=== PATIENT | male | born 1995 | race Caucasian/White ===

== ENCOUNTER 2021-04-02 21:43 | Emergency (ER) | payer BC, SELFPAY ==
[2021-04-02 21:44] VITALS: BP 129/79; PULSE 94; RESP 18; TEMP 37.2; O2SAT 97; BMI 25.6
[2021-04-02 21:47] VITALS: BP 129/79; PULSE 94; RESP 18; TEMP 37.2; O2SAT 97
--- NOTE | 2021-04-02 22:35 | RAD_ITS ---
STUDY: X-RAY CHEST REASON FOR EXAM: Male, 25 years old. fever TECHNIQUE: Single AP portable view of the chest. COMPARISON: None. FINDINGS: The lungs are clear and expanded. There is no demonstrated pleural abnormality. Normal size heart. Normal mediastinum and nae. Normal visualized pulmonary arteries. Normal visualized aortic arch and descending thoracic aorta. Normal visualized thoracic spine. Normal visualized ribs, clavicles, and shoulders. There is no demonstrated abnormality of the visualized soft tissue structures of the upper abdomen. RAD/Chest 1 View (Portable) IMPRESSION: Normal x-ray examination of the chest. Electronically Signed: Richi Conroy DO at 23:16 EDT Tel , Service support ,
[2021-04-02 22:47] VITALS: BP 127/76; PULSE 87; RESP 18; O2SAT 99
[2021-04-02 22:51] VITALS: O2SAT 98
--- NOTE | 2021-04-02 22:52 | CT_ITS ---
STUDY: CT ABDOMEN AND PELVIS WITH CONTRAST REASON FOR EXAM: Male, 25 years old. LLQ Abdominal Pain RADIATION DOSAGE (If Supplied By Facility): CTDIvol = ( 11.59 ) mGy, DLP = ( 735.39 ) mGycm TECHNIQUE: Transaxial images were obtained from the dome of the diaphragm to the symphysis pubis without oral contrast. IV 100mL Isovue-300 was administered. Sagittal and coronal images were reconstructed. Individualized dose optimization techniques were used for this CT. COMPARISON: None. FINDINGS: The visualized lung bases are unremarkable. The visualized portions of the heart are within normal limits. Normal liver. Normal gallbladder and extrahepatic biliary system. Normal spleen. Normal pancreas. Normal bilateral adrenal glands. Normal right kidney. Normal left kidney. Normal visualized stomach. Normal small intestine. Normal colon. The appendix is visualized and appears normal. Normal abdominal aorta. Normal inferior vena cava. There are multiple small retroperitoneal and periaortic lymph nodes without bulky appearance. There is very subtle inflammation and edema around the aorta and these lymph nodes. Normal urinary bladder. Normal visualized prostate gland. Normal abdominal wall. Normal osseous structures. CT/Abdomen/Pelvis W IV Cont ONLY IMPRESSION: 1. Multiple small retroperitoneal and para-aortic lymph nodes with subtle inflammation and edema of the mesentery. Unlikely to represent aortitis itself. Nonspecific finding. 2. Remainder is within normal limits. Unremarkable appendix. Electronically Signed: Richi Conroy DO at 0:34 EDT Tel , Service support ,
--- NOTE | 2021-04-02 22:52 | EX.ED.DYSGE1 ---
HPI History of Present Illness Chief Complaint: Fever Informant: patient and spouse/S.O. Narrative Narrative: 25-year-old male presents the emergency department for fever. Patient states that he came home on Tuesday with a fever around 102. He notes some headache chronic nasal congestion has developed left lower abdominal pain. He denies any dysuria. He states he did have some constipation which is odd for him. He denies any significant cough or shortness of breath. He states that he went to an urgent care today because he was concerned he had hernia but they felt that it was more swollen lymph nodes. Tonight his temperature went to 104 and he came to the hospital. He notes at urgent care they amberly blood and checked his urine and stated that he had high amounts of protein and bilirubin in the urine patient denies any penile sores in the past several months. He denies any penile drainage. PFSH PFSH no medical history Home Medications NK 04/02/21 [History Last Taken Unknown] amoxicillin-pot clavulanate 875 mg PO Q12H #19 tablet 04/03/21 [Rx Last Taken Unknown] Allergy/AdvReac Type Severity Reaction Status Date / Time No Known Allergies Allergy Verified 04/02/21 21:47 Social History (Updated 04/02/21 @ 22:[address] Cyrus Carey, DO) Smoking Status: Former smoker substance use type: does not use ROS ROS ED Constitutional Constitutional ED: Reports chills and fever(s); Denies weight loss Eyes Eyes: Denies change in vision or diplopia ENT ENT ED: Denies ear pain, rhinorrhea or sore throat Cardiovascular Cardiovascular: Denies chest pain, orthopnea, palpitations or racing heartbeat Respiratory/Chest Respiratory/Chest: Denies cough, dyspnea or orthopnea Gastrointestinal Gastrointestinal: Reports abdominal pain and constipation; Denies diarrhea, nausea or vomiting Genitourinary Genitourinary ED: Denies dysuria, hematuria or urinary frequency Musculoskeletal Musculoskeletal: Denies arthralgias or myalgias Integumentary Denies abscess or rash Neurologic Neurologic: Reports headache(s); Denies weakness Psychiatric Psychiatric: Denies anxiety, depression, suicidal ideation or suicidal thoughts Endocrine Endocrinology: Denies polydipsia, polyphagia or polyuria Allergic/Immunologic Allergic/Immunologic ED: Denies mouth swelling, tongue swelling or urticaria EXAM Physical Exam Const Vital Signs: 04/02/21 21:44 04/02/21 21:47 04/02/21 21:48 Temperature 99 F 99 F Temperature Source Temporal Temporal Pulse Rate 94 94 Respiratory Rate 18 18 Respiratory Effort Normal Respiratory Pattern Normal Blood Pressure 129/79 H 129/79 H Blood Pressure Mean 95 95 Pulse Ox 97 97 Oxygen Delivery Method 04/02/21 22:51 04/02/21 23:33 Temperature Temperature Source Pulse Rate 89 Respiratory Rate 18 Respiratory Effort Respiratory Pattern Blood Pressure 127/72 H Blood Pressure Mean 90 Pulse Ox 98 97 Oxygen Delivery Method Room Air Room Air Positive well nourished and well developed General Appearance ED: well developed HEENT Reports normocephalic, head/scalp atraumatic and moist mucous membranes HEENT Narrative: Turbinate edema Eyes PERRL and EOMs intact bilaterally Neck no lymphadenopathy, supple and no JVD Resp normal respiratory effort and clear to auscultation bilaterally Cardio regular rate, regular rhythm and no murmurs GI GI Narrative: There are some tender enlarged lymph nodes in the left lower quadrant Palpation: soft and tender LLQ Back/Spine no CVA tenderness and normal ROM Extremity normal to inspection General Extremety ED: Negative for edema General Extremity: Negative for edema Neuro oriented x3 and CN's II-XII intact bilaterally Sensorium / Orientation: alert Motor Exam: strength 5/5 throughout Psych mental status grossly normal Mood & Affect: Negative for depressed or tearful Skin no rashes or lesions noted and no wounds MDM MDM MDM Narrative Medical decision making narrative: My interpretation of the chest x-ray is no acute process. CT the abdomen pelvis demonstrates some enlarged lymph nodes and also enlarged lymph nodes in the left inguinal region. Urinalysis is normal. White count 8.273 neutrophils 13 lymphs and 12 monocytes. Covid test was negative. At this point patient appears to probably have a viral illness. I do not think that is a false positive Covid as he does not have really any other symptoms other than fever. No place him on Augmentin. Would recommend early follow-up if not improving or return here if new symptoms. Lab Data Attestation: I reviewed the patient's lab results. Labs: Laboratory Results - last 24 hr 04/02/21 04/02/21 04/02/21 23:00 23:00 23:00 WBC 8.2 RBC 4.89 Hgb 13.8 Hct 40.0 MCV 81.8 MCH 28.2 MCHC 34.5 RDW Std Deviation 37.7 RDW Coeff of Carmen 12.5 Plt Count 174 MPV 10.3 Immature Gran % (Auto) 0.100 Neut % (Auto) 73.8 H Lymph % (Auto) 13.4 L Mcdonough % (Auto) 12.1 H Eos % (Auto) 0.2 Baso % (Auto) 0.4 Absolute Neuts (auto) 6.0 Absolute Lymphs (auto) 1.10 Nucleated RBC % 0 Sodium 135 L Potassium 3.4 L Chloride 101 Carbon Dioxide 26.0 Anion Gap 8 BUN 11 Creatinine 1.03 Estim Creat Clear Calc 121.75 Est GFR (MDRD) Af Amer 111 Est GFR (MDRD) Non-Af 92 BUN/Creatinine Ratio 10.7 Glucose 120 H Calcium 8.6 Total Bilirubin 0.50 AST 17 ALT 22 Alkaline Phosphatase 60 Total Protein 8.2 Albumin 3.5 Globulin 4.7 H Albumin/Globulin Ratio 0.7 L Urine Color Yellow Urine Clarity Clear Urine pH 7.0 Ur Specific Carroll 1.005 Urine Protein 15 H Urine Glucose (UA) Normal Urine Ketones Negative Urine Occult Blood Negative Urine Nitrite Negative Urine Bilirubin Negative Urine Urobilinogen 1 H Ur Leukocyte Esterase Negative Urine RBC 0 SEEN Urine WBC 0 SEEN Ur Squamous Epith Cells 0 SEEN Urine Bacteria RARE Urine Mucus 0 SEEN Radiography Diagnostic Testing: Radiology Impression Chest X-Ray 04/02/21 22:35 IMPRESSION: Normal x-ray examination of the chest. Electronically Signed: Richi Conroy DO at 23:16 EDT Tel , Service support , Abdomen/Pelvis CT 04/02/21 22:52 IMPRESSION: 1. Multiple small retroperitoneal and para-aortic lymph nodes with subtle inflammation and edema of the mesentery. Unlikely to represent aortitis itself. Nonspecific finding. 2. Remainder is within normal limits. Unremarkable appendix. Electronically Signed: Richi Conroy DO at 0:34 EDT Tel , Service support , Discharge Plan Triage Chief Complaint: Fever ED Provider: Cyrus Carey Dx/Rx/DC Orders Clinical Impression: Acute febrile illness, Inguinal adenopathy Prescriptions: New amoxicillin-pot clavulanate [amoxicillin-pot clavulanate] 875 MG tablet 875 mg PO Q12H Qty: 19 RF: 0 No Action NK RF: 0 Primary Care Provider: Care Physician,No Primary Referrals: Dylon Murdock MD [STAFF PHYSICIAN] - 3-5 Days if not improving Care Physician,No Primary [Primary Care Provider] - Disposition Disposition: Home, Self Care
[2021-04-02 23:19] LABS: Basophil# 0.03 X10^3/uL; Basophil% 0.4 % (0-1); Eosinophil# 0.02 X10^3/uL; Eosinophils% 0.2 % (0-5); Hemoglobin 13.8 g/dL (13.0-16.5); Lymphocyte % 13.4 % (19-41); Mean Corp Hgb Conc 34.5 g/dL (32-36); Mean Corpuscular Hgb 28.2 pg (27.0-32.0); Mean Corpuscular Volume 81.8 fL (80-94); Mean Platelet Vol. 10.3 fl (6.2-12.0); Monocyte# 0.99 X10^3/uL; Monocyte% 12.1 % (0-10); NRBC Flagged by Analyzer 0 % (0-5); Neutrophil # 6.03 X10^3/uL (2.7-7.7); Neutrophil % 73.8 % (47-70); Platelet Count 174 K/mm3 (150-450); RBC Distribution Width CV 12.5 % (11.6-14.6); RBC Distribution Width SD 37.7 fl (35.1-43.9); Red Blood Count 4.89 M/mm3 (4.6-6.2); White Blood Count 8.2 K/mm3 (4.4-11.0)
[2021-04-02 23:20] LABS: Mucous, Urine 0 SEEN /hpf (<or=2+); Red Blood Cells-Urine 0 SEEN /hpf (0-5); Squamous Epithelial Cells - UA 0 SEEN /hpf (0-5); White Blood Cells 0 SEEN /hpf (0-5)
[2021-04-02 23:23] LABS: Color, Urine Yellow (Yellow); Glucose, Dipstick Normal (Normal); Ketone-Dipstick Negative (Negative); Leukocyte Esterase-Dipstick Negative /ul (Negative); Nitrite-Dipstick Negative (Negative); Occult Blood-Urine Negative /ul (Negative); Protein-Dipstick 15 mg/dl (Negative); Specific Gravity, Urine 1.005 (1.002-1.030); Urine Bilirubin Dipstick Negative (Negative); Urine Clarity Clear (Clear); Urine Urobilinogen 1 mg/dl (Normal)
[2021-04-02 23:29] LABS: Bacteria RARE /hpf (None Seen)
[2021-04-02 23:33] VITALS: BP 127/72; PULSE 89; RESP 18; O2SAT 97
[2021-04-02 23:40] LABS: ALB/GLOB Ratio 0.7 RATIO (0.9-2.4); AST(SGOT) 17 U/L (15-37); Alanine Aminotransfer ALT/SGPT 22 U/L (16-61); Albumin, Serum 3.5 g/dL (3.2-5.0); Alkaline Phosphatase 60 U/L (45-117); Anion Gap 8 (5-15); BUN 11 mg/dL (7-18); BUN/Creat Ratio 10.7 RATIO (10-20); Calcium,Total 8.6 mg/dL (8.5-10.1); Chloride 101 mmol/L (98-107); Creatinine, Serum 1.03 mg/dL (0.70-1.30); EST Glomerular Filtration Rate 92 mL/min (>60); Est Glom Filt Rate - Afr Amer 111 mL/min (>60); Estimated Creatinine Clearance 121.75 ml/min; Globulin 4.7 g/dL (2.2-4.2); Glucose 120 mg/dL (74-106); Potassium 3.4 mmol/L (3.5-5.1); Protein, Total 8.2 g/dL (6.4-8.2); Sodium Level 135 mmol/L (136-145)
[2021-04-03] MEDS: Amox/Clavulanate 875 MG Tablet PO (01:06)
== END 2021-04-03 01:09 | disposition home or self-care (01) ==
PROVIDERS: Emergency Provider Emergency Medicine
DX: R50.9 Fever, unspecified (principal); R59.0 Localized enlarged lymph nodes; Z20.822 Contact with and (suspected) exposure to COVID-19; R51.9 Headache, unspecified; R09.81 Nasal congestion; R10.32 Left lower quadrant pain; K59.00 Constipation, unspecified; Z87.891 Personal history of nicotine dependence
CPT/HCPCS: 71045; 74177; 80053; 81001; 85025; 87426; 99283; Q9967; A4216

== ENCOUNTER → 2023-08-26 | Outpatient (CLI) | payer BC, SELFPAY ==
--- NOTE | 2023-08-26 13:41 | VAS_PTH ---
PATHOLOGY RESULTS PATIENT: JOSH MANLEY LOC: [facility]#:[id number] AGE/SX: 28/M ROOM: RE08/26/[address]: Dr. Darnell Francis MD : 1995 BED: DIS: 08/26/2023 SPEC #: [id number] RECD: 08/30/23 07:45 STATUS: SANTOS JUSTYNA #: [id number] BRIANA: 08/26/23 13:[address]: Darnell Francis DEPT: SURGICAL PATHOLOGY RECD BY: Kandy Jain ENTERED: 08/30/23 07:46 SP TYPE: VAS OTHR DR: Divina Primary Care Phys Tissues: Vas deferens, NOS Vas deferens, NOS Procedures: Surgery Specimen Level II HEADER OPERATION: Bilateral partial vasectomy PRE-OP DIAGNOSIS: Sterilization TISSUE SUBMITTED: A - Left vas deferens, B - Right vas deferens MICROSCOPIC DIAGNOSIS A. Left vas deferens, segmental vasectomy: Complete cross-section of vas deferens with no pathologic change. B. Right vas deferens, segmental vasectomy: Complete cross-section of vas deferens with no pathologic change. AM:ivone 08/31/2023 MICROSCOPIC DESCRIPTION Slides are reviewed. GROSS DESCRIPTION A - Received is one container designated left vas deferens. The specimen consists of a tubular segment of garcia soft tissue measuring 0.9 cm in length and 0.2 cm in diameter. The specimen is sectioned and submitted entirely in one cassette. B - Received is one container designated right vas deferens. The specimen consists of a tubular segment of garcia soft tissue measuring 1.0 cm in length and 0.2 cm in diameter. The specimen is sectioned and submitted entirely in one cassette. / SJ:ivone 08/30/2023 TC:4 CPT: 10367 x2
--- OUTSIDE RECORDS SUMMARY | 2023-08-26 20:36 | XMS RPT_ITS | CCD ---
Author Name Unknown Address [address] [place] [address] Organization [facility] Care Team Providers Care Data Systems Analyst Name Role Phone SUZAN BENNETT Admitting Unavailable SUZAN BENNETT Attending Unavailable SUZAN BENNETT Primary Care Unavailable MAC LAMBERT MD Consulting Unavailable PROVIDER, UNKNOWN Consulting Unavailable PROVIDER, UNKNOWN Consulting Unavailable PROVIDER, UNKNOWN Consulting Unavailable Felecia Dyer PA-C Primary Care Provider [phone] Felecia Dyer PA-C Primary Care Provider [phone] Felecia DYER Referring Unavailable Felecia DYER Primary Care Unavailable Felecia DYER Attending Unavailable Felecia DYER Primary Care Unavailable SUZAN PARR Attending Unavailable Felecia DYER Primary Care Unavailable Medications Completed/Discontinued Medications Medication Drug Class(es) Dates Sig (Normalized) Sig (Original) escitalopram 10 mg oral tablet (1 source) Serotonin Reuptake Inhibitor Start: 10-29-2022 End: 03-11-2023 take 1 tablet by mouth once daily escitalopram oxalate (LEXAPRO) 10 mg tablet Indications: ADHD (attention deficit hyperactivity disorder), combined type , Irritability Take 1 tablet by mouth once daily. 90 tablet 1 10/29/2022 03/11/2023 Discontinued (Course of therapy completed) Problems Problem Classification Problem Date Documented Date Episodic/Chronic Administrative/socia l admission (4 sources) Patient encounter status; Translations: [Encounter for examination for driving license] Onset: 03-11-2023 Episodic Disorders of teeth and jaw (1 source) Gingivitis; Translations: [Chronic gingivitis, plaque induced] 03-11-2023 Chronic Disorders of teeth and jaw (1 source) Periodontal disease; Translations: [Periodontal disease, unspecified] Episodic Esophageal disorders (11 sources) Gastroesophageal reflux disease without esophagitis; Translations: [Gastro-esophageal reflux disease without esophagitis] Onset: 05-08-2021 Chronic Fever of unknown origin (1 source) Fever, unspecified; Translations: [Fever, unspecified] Onset: 03-10-2020 Episodic Headache; including migraine (1 source) Headache; Translations: [Headache] Onset: 03-10-2020 Episodic Immunizations and screening for infectious disease (1 source) Vaccination needed; Translations: [Encounter for immunization] Episodic Lymphadenitis (1 source) Disorder of intra-abdominal lymph nodes; Translations: [Localized enlarged lymph nodes] Episodic Other hematologic conditions (1 source) ESR raised; Translations: [Elevated erythrocyte sedimentation rate] Episodic Other lower respiratory disease (3 sources) Shortness of breath; Translations: [Shortness of breath] Onset: 03-10-2020 Episodic Other nutritional; endocrine; and metabolic disorders (2 sources) Weight loss; Translations: [Abnormal weight loss] Episodic Thyroid disorders (18 sources) Graves' disease; Translations: [Thyrotoxicosis with diffuse goiter without thyrotoxic crisis or storm] Onset: 12-04-2021 Chronic Viral infection (11 sources) Elzbieta-Reddy virus disease; Translations: [Infectious mononucleosis, unspecified without complication] Onset: 12-04-2021 Episodic Results Test Name Value Interpretation Reference Range Facil ity Vital Signs Date Time Vital Sign Value Performing Clinician Galina boone 03-11-2023 11:06-0400 Body height 182 cm NA Dyer PA-C Work Phone: [facility] 03-11-2023 11:06-0400 Body weight 86.64 kg NA Dyer PA-C Work Phone: [facility] 03-11-2023 11:06-0400 Diastolic blood pressure 68 mm[Hg] NA Dyer PA-C Work Phone: [facility] 03-11-2023 11:06-0400 Heart rate 83 /min NA Dyer PA-C Work Phone: [facility] 03-11-2023 11:06-0400 Respiratory rate 18 /min NA Dyer PA-C Work Phone: [facility] 03-11-2023 11:06-0400 SaO2% (BldA) [Mass fraction] 97 % NA Dyer PA-C Work Phone: [facility] 03-11-2023 11:06-0400 Systolic blood pressure 112 mm[Hg] NA Dyer PA-C Work Phone: [facility] 01-26-2022 08:05-0400 Body height 182.9 cm Nichol Sewell MD Work Phone: [facility] 01-26-2022 08:05-0400 Body weight 86.18 kg Nichol Sewell MD Work Phone: [facility] 01-26-2022 08:05-0400 Diastolic blood pressure 82 mm[Hg] Nichol Sewell MD Work Phone: [facility] 01-26-2022 08:05-0400 Heart rate 74 /min Nichol Sewell MD Work Phone: [facility] 01-26-2022 08:05-0400 SaO2% (BldA) [Mass fraction] 100 % Nichol Sewell MD Work Phone: [facility] 01-26-2022 08:05-0400 Systolic blood pressure 132 mm[Hg] Nichol Sewell MD Work Phone: [facility] 12-31-2021 10:47-0400 Body height 182 cm NA Dyer PA-C Work Phone: [facility] 12-31-2021 10:47-0400 Body weight 87.09 kg NA Dyer PA-C Work Phone: [facility] 12-31-2021 10:47-0400 Diastolic blood pressure 68 mm[Hg] NA Dyer PA-C Work Phone: [facility] 12-31-2021 10:47-0400 Heart rate 74 /min NA Dyer PA-C Work Phone: [facility] 12-31-2021 10:47-0400 Respiratory rate 16 /min NA Dyer PA-C Work Phone: [facility] 12-31-2021 10:47-0400 SaO2% (BldA) [Mass fraction] 98 % NA Dyer PA-C Work Phone: [facility] 12-31-2021 10:47-0400 Systolic blood pressure 122 mm[Hg] NA Dyer PA-C Work Phone: [facility] 12-04-2021 08:31-0400 Body weight 89.36 kg NA Dyer PA-C Work Phone: [facility] 12-04-2021 08:31-0400 Diastolic blood pressure 82 mm[Hg] NA Dyer PA-C Work Phone: [facility] 12-04-2021 08:31-0400 Heart rate 76 /min NA Dyer PA-C Work Phone: [facility] 12-04-2021 08:31-0400 Respiratory rate 18 /min NA Dyer PA-C Work Phone: [facility] 12-04-2021 08:31-0400 SaO2% (BldA) [Mass fraction] 97 % NA Dyer PA-C Work Phone: [facility] 12-04-2021 08:31-0400 Systolic blood pressure 128 mm[Hg] NA Dyer PA-C Work Phone: [facility] Encounters Encounter Date Encounter Type Care Provider Facility Start: 03-11-2023 End: 03-12-2023 ambulatory Felecia DYER Facility:[facility] Start: 03-11-2023 End: 03-11-2023 ambulatory Felecia DYER Facility:[facility] Start: 03-11-2023 End: 03-11-2023 Patient encounter procedure Felecia Dyer PA-C Work Phone: [facility] Procedures Date Procedure Procedure Detail Performing Clinician Start: 03-11-2023 Urnls dip stick/tabl et rgnt auto w/o microscopy Felecia Dyer PA-C Work Phone: Start: 05-05-2022 Urnls dip stick/tabl et rgnt auto w/o microscopy M Preston Dyer PA-C Work Phone: Start: 05-05-2021 Adult depression screening assessment MALCOM CARVAJAL-C Work Phone: Plan of Treatment Date Care Activity Detail Author Start: 12-05-2031 Urine microalbumin profile DTAP,TDAP,TD (8 - Td or Tdap) [facility] Start: 03-11-2024 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 REBECCA DISEASE VISIT ANNUAL PCP TEAM CHRONIC DISEASE VISIT [facility] Start: 04-29-2023 Influenza vaccination INFLUENZA (#1) [facility] Start: 03-11-2023 End: 05-11-2023 Comprehensive metabolic 2000 panel - Serum or Plasma [facility] Work Phone: Immunizations Immunization Date Immunization Notes Care Provider Fa cility 12-04-2021 tetanus toxoid, redu dar diphtheria toxoid, and acellular pertussis vaccine, adsorbed MALCOM Dyer PA-C Work Phone: [facility] 08-20-2010 meningococcal polysaccharide vaccine (MPSV4) NA Dyer PA-C Work Phone: [facility] 08-20-2010 tetanus toxoid, redu dar diphtheria toxoid, and acellular pertussis vaccine, adsorbed NA Dyer PA-C Work Phone: [facility] 12-25-1998 diphtheria, tetanus toxoids and acellular pertussis vaccine, unspecified formulation NA Dyer PA-C Work Phone: [facility] 12-25-1998 measles, mumps and rubella virus vaccine NA Dyer PA-C Work Phone: [facility] 12-25-1998 trivalent poliovirus vaccine, live, oral NA Dyer PA-C Work Phone: [facility] 05-31-1996 diphtheria, tetanus toxoids and acellular pertussis vaccine, unspecified formulation NA Dyer PA-C Work Phone: [facility] 1994 haemophilus influenz ae type b vaccine, conjugate unspecified formulation NA Dyer PA-C Work Phone: [facility] 1994 measles, mumps and rubella virus vaccine NA Dyer PA-C Work Phone: [facility] 02-16-1994 diphtheria, tetanus toxoids and pertussis vaccine NA Dyer PA-C Work Phone: [facility] 02-16-1994 haemophilus influenz ae type b vaccine, conjugate unspecified formulation NA Dyer PA-C Work Phone: [facility] 02-16-1994 hepatitis B vaccine, pediatric or pediatric/adolescent dosage NA Deyr PA-C Work Phone: [facility] 02-16-1994 trivalent poliovirus vaccine, live, oral NA Dyer PA-C Work Phone: [facility] 1993 diphtheria, tetanus toxoids and pertussis vaccine NA Dyer PA-C Work Phone: [facility] 1993 haemophilus influenz ae type b vaccine, conjugate unspecified formulation NA Dyer PA-C Work Phone: [facility] 1993 trivalent poliovirus vaccine, live, oral NA Dyer PA-C Work Phone: [facility] 1993 diphtheria, tetanus toxoids and pertussis vaccine NA Dyer PA-C Work Phone: [facility] 1993 haemophilus influenz ae type b vaccine, conjugate unspecified formulation NA Dyer PA-C Work Phone: [facility] 1993 hepatitis B vaccine, pediatric or pediatric/adolescent dosage NA Dyer PA-C Work Phone: [facility] 1993 trivalent poliovirus vaccine, live, oral NA Dyer PA-C Work Phone: [facility] 1993 hepatitis B vaccine, pediatric or pediatric/adolescent dosage NA Dyer PA-C Work Phone: [facility] Payers Date Payer Category Payer Unknown [id number] 2019 Unknown [id number] 2019 Unknown [employer] PPO OOS [id number] 2019-Present [phone] [address] [place] [address] PPO [id number] 2019 Unknown [employer] PPO OOS [id number] 2019-Present [phone] [address] [place] [address] PPO [id number] 1993 Unknown [id number] Social History Date Type Detail Facility Start: 05-08-2021 End: 10-29-2022 Tobacco smoking status NHIS Ex-smoker [facility] End: 05-08-2019 History of tobacco use Current smoker [facility] Start: 05-08-2021 End: 10-29-2022 Tobacco use and exposure Smokeless tobacco non-user [facility] Start: 12-04-2021 End: 03-11-2023 Alcohol intake Not Asked [facility] Start: 05-06-2021 History SDOH Alcohol Frequency 2 [facility] Start: 05-06-2021 History SDOH Alcohol Std Drinks 1 [facility] Start: 05-06-2021 History SDOH Social Connections Phone 3 [facility] Start: 05-06-2021 History SDOH Physica l Activity DPW 6 [facility] Start: 05-06-2021 History SDOH Physica l Activity MPS 15 [facility] Start: 05-06-2021 History SDOH Financial 5 [facility] Start: 05-05-2021 Education 12 [facility] Start: 1993 Sex Assigned At Not on file C [facility] Start: 11-24-2021 End: 01-26-2022 Exposure to SARS-CoV-2 (event) Not sure [facility] End: 05-08-2019 History of tobacco use Cigarette Smoker [facility] Start: 04-02-2021 End: 10-28-2022 History of Social function [facility] Start: 04-02-2021 End: 10-28-2022 Social connection and isolation panel [facility] Do you belong to any clubs or organizations such as hinduism groups, unions, fraternal or athletic groups, or school groups? No [facility] Are you now , , , , never or living with a partner? [facility] How often to you hav e a drink containing alcohol? Monthly or less [facility] How many standard dr inks containing alcohol do you have on a typical day? 1 or 2 [facility] How often do you hav e 6 or more drinks on 1 occasion? Less than monthly [facility] How hard is it for y ou to pay for the very basics like food, housing, medical care, and heating Not very hard [facility] Adult Depression Scr eening Assessment 0 [facility] Do you feel stress - tense, restless, nervous, or anxious, or unable to sleep at night because your mind is troubled all the time - these days [OSQ] To some extent [facility] (I/We) worried whe er (my/our) food would run out before (I/we) got money to buy more. Never true [facility] Start: 10-29-2022 Tobacco Comment Vaping [facility] Clinical Notes 12-04-2021 to 03-11-2023 Patient InstructionsFelecia Dyer PA-C - 03/11/2023 10:40 AM EDTHarAcacia canchola Ma - 03/11/2023 10:40 AM EDTTelephone Encounter - Felecia Dyer PA-C - 01/27/2022 7:11 PM EDTPatient Instructions Note Date & Type Note Facility 03-11-2023 Note HNO ID: [id number] Author: Felecia Dyer PA-C Service: ? 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 ACTIVE PROBLEM LIST Gerd Without Esophagitis Current medication: No medications Current symptoms: still a little reflux but not as bad on medication. Last Mg level if on PPI chronically: none. Heartburn is controlled: about once a month. Dysphagia: No. Bloody or black stools: No. Bowel changes: No. Last EGD and/or colonoscopy: none. Chronic Elzbieta-Reddy Virus (Ebv) Infection Syndrome Doing well, no fatigue Grave's disease 01/26/2022 consult lead presser: Dr. Guzman Sewell Current medications: Tapazole 5 mg once a day?? Last thyroid labs: Component Latest Ref Rng AND Units 12/31/2021 01/26/2022 01/26/2022 9:30 AM 9:30 AM TSH 0.270 - 4.200 mIU/L 4.130 3.430 3.440 Free T4 0.9 - 1.7 ng/dL 1.2 1.2 Free T3 2.3 - 4.1 pg/mL 3.2 T3 79 - 165 ng/dL 132 Component Latest Ref Rng AND Units 05/08/2021 05/15/2021 TSI Qualitative Negative Negative TSI <0.55 IU/L 0.14 TSH Receptor AutoAntibody, Qualitative Negative Positive (A) TSH Receptor AutoAntibody <1.01 IU/L 4.15 (H) WSR 0 - 15 mm/hr 58 (H) CRP <0.9 mg/dL 0.8 Microsomal Antibody <5.6 IU/mL <1.0 Thyroglobulin Ab <14.4 IU/mL 5.[address] Parr due to irritability, concerns ADHD Started SSRI rather than stimulants r/t Grave's Current medications: Escitalopram 10mg daily Hasn't made any difference after 2 months so he stopped. Feels he gets distracted very easily. Mind races at night. Has impulse control Hasn't been on medication since high school. Stopped Adderall due concerns about FH heart disease, trouble gaining weight. Feels has to walk back and forth several times to complete tasks at work. frustrated with his lask of follow through, doing irritating things in teasing Drinks energy drinks twice a day PAST MEDICAL HISTORY Diagnosis Date NEGATIVE MEDICAL HISTORY REVIEW OF SYMPTOMS: updated 03/11/2023 - General: denies fatigue, unusual weight loss or gain, fevers, chills. Energy Level: pretty good. Exercise walking with his . If yes, what type: walking. How often/long: continues at least once a week. Sleep: hours: good, 10-6 Diet: nothing special Any routine health measures: no. Tobacco use: none. Caffeine use: 1-2 energy drinks a day. ETOH use: sparingly. Marijuana use: none. Illicit drug use: none. - Eyes: denies change in vision, glaucoma, cataracts. Contacts. Last eye exam: last tuesday. EENT: denies recurrent sinus infection, unusual nasal drainage, hoarsemess, sore throat, or recurrent sore in mouth or tongue. - Cardiovascular: denies chest pain , SOB, palpitation, irregular or racing heart beats, orthopnea, leg swelling, history of rheumatic fever or prior heart conditions - Respiratory: denies unusual cough, SOB, wheezing, history of recurrent bronchitis, pneumonia or tuberculosis. Denies day time drowsiness. deniesSnoring. No sleep apne. - GI: denies difficulty swallowing, nausea, vomiting, change in appetite. No change in bowel habits. Denies constipation, diarrhea, rectal bleeding or hemorrhoids, incontinence. No history of GERD, PUD, jaundice/hepatitis, GB disease, diverticulosis, colorectal cancer, hernias. - Kidney/Bladder: Denies frequency, burning. Nocturia none, incontinence none. No history of kidney stones, recurrent UTI or kidney infection. - Skin: denies unusual rashes. No history of skin cancer, bleeding/changing moles, or unusual skin lesions. - Neurologic: Denies recurrent JARRETT, change in vision, hearing or smell, tremors, unusual weakness, loss of sensation, or difficulty with balance or gait. No history of epilepsy/convulsions, migraine, head/spinal injuries, or stroke/TIA. - Psychiatric: denies unusual worry, moodiness, depression, suicidal ideation or unusual disturbance in relationships. No history of psychiatric illness. - Endocrine: grave's disease controlled: sweats more at night after methimazole started. denies unusual thirst, hunger, excessive urination, change (more content not included)... [facility] 03-11-2023 Instructions Felecia Dyer PA-C - 03/11/2023 11:42 AM EDT [place] teeth gently massaging gums with soft tooth brush 2-3 minutes twice a day See dentist as soon as possible. 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 ACTIVE PROBLEM LIST Gerd Without Esophagitis Current medication: No medications Current symptoms: still a little reflux but not as bad on medication. Last Mg level if on PPI chronically: none. Heartburn is controlled: about once a month. Dysphagia: No. Bloody or black stools: No. Bowel changes: No. Last EGD and/or colonoscopy: none. Chronic Elzbieta-Reddy Virus (Ebv) Infection Syndrome Doing well, no fatigue Grave's disease 01/26/2022 consult lead presser: Dr. Guzman Sewell Current medications: Tapazole 5 mg once a day?? Last thyroid labs: Component Latest Ref Rng & Units 12/31/2021 01/26/2022 01/26/2022 9:30 AM 9:30 AM TSH 0.270 - 4.200 mIU/L 4.130 3.430 3.440 Free T4 0.9 - 1.7 ng/dL 1.2 1.2 Free T3 2.3 - 4.1 pg/mL 3.2 T3 79 - 165 ng/dL 132 Component Latest Ref Rng & Units 05/08/2021 05/15/2021 TSI Qualitative Negative Negative TSI <0.55 IU/L 0.14 TSH Receptor AutoAntibody, Qualitative Negative Positive (A) TSH Receptor AutoAntibody <1.01 IU/L 4.15 (H) WSR 0 - 15 mm/hr 58 (H) CRP <0.9 mg/dL 0.8 Microsomal Antibody <5.6 IU/mL <1.0 Thyroglobulin Ab <14.4 IU/mL 5.[address] Parr due to irritability, concerns ADHD Started SSRI rather than stimulants r/t Grave's Current medications: Escitalopram 10mg daily Hasn't made any difference after 2 months so he stopped. Feels he gets distracted very easily. Mind races at night. Has impulse control Hasn't been on medication since high school. Stopped Adderall due concerns about FH heart disease, trouble gaining weight. Feels has to walk back and forth several times to complete tasks at work. frustrated with his lask of follow through, doing irritating things in teasing Drinks energy drinks twice a day PAST MEDICAL HISTORY Diagnosis Date NEGATIVE MEDICAL HISTORY REVIEW OF SYMPTOMS: updated 03/11/2023 - General: denies fatigue, unusual weight loss or gain, fevers, chills. Energy Level: pretty good. Exercise walking with his . If yes, what type: walking. How often/long: continues at least once a week. Sleep: hours: good, 10-6 Diet: nothing special Any routine health measures: no. Tobacco use: none. Caffeine use: 1-2 energy drinks a day. ETOH use: sparingly. Marijuana use: none. Illicit drug use: none. - Eyes: denies change in vision, glaucoma, cataracts. Contacts. Last eye exam: last tuesday. EENT: denies recurrent sinus infection, unusual nasal drainage, hoarsemess, sore throat, or recurrent sore in mouth or tongue. - Cardiovascular: denies chest pain , SOB, palpitation, irregular or racing heart beats, orthopnea, leg swelling, history of rheumatic fever or prior heart conditions - Respiratory: denies unusual cough, SOB, wheezing, history of recurrent bronchitis, pneumonia or tuberculosis. Denies day time drowsiness. deniesSnoring. No sleep apne. - GI: denies difficulty swallowing, nausea, vomiting, change in appetite. No change in bowel habits. Denies constipation, diarrhea, rectal bleeding or hemorrhoids, incontinence. No history of GERD, PUD, jaundice/hepatitis, GB disease, diverticulosis, colorectal cancer, hernias. - Kidney/Bladder: Denies frequency, burning. Nocturia none, incontinence none. No history of kidney stones, recurrent UTI or kidney infection. - Skin: denies unusual rashes. No history of skin cancer, bleeding/changing moles, or unusual skin lesions. - Neurologic: Denies recurrent JARRETT, change in vision, hearing or smell, tremors, unusual weakness, loss of sensation, or difficulty with balance or gait. No history of epilepsy/convulsions, migraine, head/spinal injuries, or stroke/TIA. - Psychiatric: denies unusual worry, moodiness, depression, suicidal ideation or unusual disturbance in relationships. No history of psychiatric illness. - Endocrine: grave's disease controlled: sweats more at night after methimazole started. denies unusual thirst, hunger, excessive urination, change in skin or hair texture, emotional lability. No history of thryoid, pituitary or hormonal problems. Hematologic: denies unusual bleeding, bruising, or history of anemia or blood transfusion. Denies hx blood clots. - Infections: denies risk factors for HIV, hepatitis or history of unusual infection. Immunizations are up to date. - Musculoskeletal: chronic neck pain since middle school. No radiating pain,numbness, or tingling. denies unusual stiffness, muscles aches, joint pain, or swelling. Denies recurrent sprain or disruption of joints, debilitating arthritis, gout, or other musculoskeletal disease. No hx back injury, spinal stenosis, radiculopathy. - COVID-19 VACCINE(1) Never done HEPATITIS C SCREENING Never done HIV SCREENING Never done DEPRESSION ASSESSMENT Never done EXAM: BP 112/68 Pulse 83 Resp 18 Ht 182 cm (5' 11.65 ) Wt 86.6 kg (191 lb) SpO2 97% BMI 26.16 kg/m Nursing Notes: Acacia Gregg Ma 03/11/2023 11:44 AM Signed VISUAL ACUITY: Today's exam: Vision Correction? Contacts: RIGHT EYE: 20/20 LEFT EYE: 20/ 20 BOTH EYES: 20/15 HEARING EXAM: Frequency 1000Hz: Right15 dB Left 15dB 2000Hz Right15 dB Left 15dB 500Hz Right15 dB Left 25dB General appearance: Pleasant well appearing well appearing adult male, in no acute distress. No barriers to learning. Normal affect and cognition. Alert and oriented in all spheres. Respirations: regular, unlabored Color: pink to lips and nailbeds Skin: warm, dry, no unusual rashes or lesions Head: Normocephalic Eyes: sclerae and conjunctivae without injection or exudate, PERRLA, EOMI, corneal light reflex symmetric bilaterally. Peripheral vision to 90degrees. Ears: TM's and ear canals are clear bilaterally with normal landmarks, no swelling or deformity external ear Nose/Sinuses: Nose patent. No turbinate swelling. No active exudate. Maxillary and frontal sinuses nontender to percussion. Oropharynx: Lips, mucosa, and tongue free from lesions. Teeth are in very poor repair. Gums with significant gingivitis/ inflammation. Oropharynx no exudate or injection. No tonsillar hypertrophy. Mallampati 0/4. Neck: Neck supple, no cervical lymphadenopathy; thyroid without mass or tenderness. Carotids: right 2/4 without bruit, left 2/4 with 0 bruit Chest: normally shaped, equal expansion with breaths.. Lungs: Lungs clear to auscultation and percussion. No crackles or wheezes. Heart: RRR without murmur, gallop, or rubs. S1 and S2 normal. Abd soft, nontender, normoactive bowel sounds throughout, no mass, no organomegaly. Penis circumcised. Testicles descended without nodules. No hernias. Prostate: deferred back FROM, no abnormal curvature. Able to touch toes. Extremities well formed, FROM and strength, no clubbing cyanosis or edema. Neuro grossly intact. Normal gait and balance. Able to squat without difficulty. DTR's 2+/4 symmetric upper and lower bilaterally. Romberg is negative. Hearing normal persudiometry ASSESSMENT/PLAN: 1. 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 Graves disease - ICD9: 242.00, ICD10: E05.00 Seeing Endo this month. Complete outstanding labs. 3. Weight loss - ICD9: 783.21, ICD10: R63.4 Resolved 4. GERD without esophagitis - ICD9: 530.81, ICD10: K21.9 Currently stable off medication, discussed use of omeprazole as needed 5. Periodontal disease - ICD9: 523.9, ICD10: K05.6 Strongly urged patient to get teeth pulled due to relative risk from bacteremia and heart disease. Felecia Dyer PA-C documented in this encounter [facility] 03-11-2023 Nurse Note VISUAL ACUITY: Today's exam: Vision Correction? Contacts: RIGHT EYE: 20/20 LEFT EYE: 20/ 20 BOTH EYES: 20/15 HEARING EXAM: Frequency 1000Hz: Right15 dB Left 15dB 2000Hz Right15 dB Left 15dB 500Hz Right15 dB Left 25dB documented in this encounter [facility] 10-29-2022 Note HNO ID: [id number] Author: Suzan Parr MD Service: ? Author Type: Physician Type: Progress Notes Filed: 10/29/2022 2:22 PM Note Text: Patient presents with: Behavioral Problem HPI: Patient presents today for office visit for follow up. ADHD: Treated with caffeine mostly and concerned with this wanted him to come in to discuss. Also he has noticed increasing irritability that relates to Graves. is also noticing this. Not sure much could be done for this but thought time to see someone to discuss. When asked about trouble with sleep states that only on occasion and more trouble with falling asleep. No weight changes. Discussed limiting stimulants. Can be snappy at time. Most recent tsh. Sleep still is a little iffy Weight has leveled out. No nausea. No palpitations. No chest pain. No suicidal ideation. No tremor. MEDICATIONS: Current Outpatient Medications Medication Sig methIMAzole (TAPAZOLE) 5 mg tablet One tablet from Tuesday to Tuesday and none on Sundays ibuprofen (ADVIL) 200 mg tablet Take 200 mg by mouth every 6 hours as needed. (Patient not taking: Reported on 01/26/2022 ) omeprazole (PRILOSEC) 20 mg capsule Take 1 capsule by mouth daily before breakfast. 1/2 hr before meal. (Patient not taking: Reported on 12/04/2021 ) No current facility-administered medications for this visit. ALLERGIES: ALLERGIES No Known Allergies PAST MEDICAL HISTORY Diagnosis Date NEGATIVE MEDICAL HISTORY PAST SURGICAL HISTORY Procedure Laterality Date NONE No family history on file. Social History Tobacco Use Smoking status: Former Types: Cigarettes Quit date: 05/08/2019 Years since quittin.4 Smokeless tobacco: Never Reviewed current medications, allergies, past medical history, surgical history, family history and social history today. REVIEW OF SYSTEMS All other reviewed and negative other than HPI. e VITALS: BP 110/72 Pulse 87 Wt 88 kg (194 lb) SpO2 97% BMI 26.31 kg/m? Last 4 Encounter Wt Readings: Date: Wt: 01/26/2022 86.2 kg (190 lb) 12/31/2021 87.1 kg (192 lb) 12/04/2021 89.4 kg (197 lb) 05/08/2021 80.3 kg (177 lb) PHYSICAL EXAMINATION: General appearance: Well appearing, alert, in no acute distress, well-hydrated, well nourished. Skin: Skin color, texture, turgor normal, no suspicious rashes or lesions Head: Normocephalic, no masses, lesions, tenderness or abnormalities Lungs: Lungs clear to auscultation. No wheezing, rhonchi, rales Heart: RRR without murmur, gallop, or rubs. No ectopy Abdomen: Normal abdominal exam, Abdomen soft, non-tender. Bowel sounds normal. No masses, organomegaly Extremities: No deformities, edema, skin discoloration, clubbing or cyanosis. Good capillary refill. PSYCH:Affect normal. Normal speech. Normal eye contact ASSESSMENT/PLAN: 1. ADHD (attention deficit hyperactivity disorder), combined type - ICD9: 314.01, ICD10: F90.2 (primary diagnosis) - limit caffeine. Would prefer to avoid stimulant given his grave's. Discussed risks and benefits of new medication with the patient. Advised them to call if any side effects or questions. - ESCITALOPRAM 10 MG TABLET 2. Hyperthyroidism - ICD9: 242.90, ICD10: E05.90 - stable. 3. Irritability - ICD9: 799.22, ICD10: R45.4 Discussed risks and benefits of new medication with the patient. Advised them to call if any side effects or questions. - ESCITALOPRAM 10 MG TABLET uSzan Parr MD RTO in one month On leaving, wants referral for vasectomy [facility] 01-27-2022 Miscellaneous Notes See my chart message: Telephone on 01/27/22 TSH BLD T4 FREE/FREE THYROX Felecia Dyer PA-C documented in this encounter [facility] 01-26-2022 Instructions Nichol Sewell MD - 01/26/2022 8:23 AM EDT Blood work documented in this encounter [facility] 01-26-2022 History of Presen t illness Narrative Endocrinology Initial Assessment Josh Manley is here for a consultation upon the request of PCP regarding: Felecia Dyer PA-C Documentation supporting sharing your findings and recommendations via the shared medical record or via the mail. PCP is BRANDON Mcclelland [address] [place] [address] History of Present Illness Josh Manley is a 26 year old male with PMH of hyperthyroidism who presents today for evaluation of hyperthyroidism. Patient reports he was diagnosed with thyroid disease April2021. He presented with flu-like symptoms and spent ~1 week on the cough with fever, sweating, muscle pain. He says he had a fever of 104 F and went to the ED. Was told he had Elzbieta Reddy Abs and was told had mononucleosis. Then he lost 30 pounds within 1 month and had thyroid labs showing hyperthyroidism. He was started on methimazole 5 mg twice per day but after 2 months he was told to reduce it to 5 mg every day. Since started on methimazole he has developed joint pain. FH of thyroid disease: younger brother has a nodular goiter Hx of amiodarone, lithium? no Taking Biotin? no History of CT scan with intravenous contrast within the last 4 months? no History of ionizing radiation to the head, neck or chest? no Past History, Medications, Allergies PAST MEDICAL HISTORY Diagnosis Date NEGATIVE MEDICAL HISTORY PAST SURGICAL HISTORY Procedure Laterality Date NONE Current Outpatient Medications Medication Sig Dispense Refill methIMAzole (TAPAZOLE) 5 mg tablet Take 1 tablet by mouth once daily. 30 tablet 5 ibuprofen (ADVIL) 200 mg tablet Take 200 mg by mouth every 6 hours as needed. (Patient not taking: Reported on 01/26/2022 ) omeprazole (PRILOSEC) 20 mg capsule Take 1 capsule by mouth daily before breakfast. 1/2 hr before meal. (Patient not taking: Reported on 12/04/2021 ) 30 capsule 2 No current facility-administered medications for this visit. ALLERGIES No Known Allergies No family history on file. Social History Tobacco Use Smoking status: Former Smoker Quit date: 05/08/2019 Years since quittin.7 Smokeless tobacco: Never Used Substance Use Topics Alcohol use: Not on file Drug use: Not on file Review of Systems Thyroid Pain: no Mass Effect: None Energy: improving Moods: good Sleep: Normal sleep pattern Temp. Intolerance: Heat Intolerance Weight: remained stable HEENT:Negative for frequent or significant headaches, No changes in hearing or vision, no nose bleeds or other nasal problems RESPIRATORY: Negative for cough, hemoptysis, wheezing or shortness of breath CARDIOVASCULAR: Negative for chest pain, leg swelling or palpitations GASTROINTESTINAL: No nausea, vomiting, or diarrhea GENITOURINARY: No history of dysuria, frequency or incontinence MUSCULOSKELETAL: joint pain and muscle pain NEUROLOGIC:Negative for focal numbness or weakness, headaches and dizziness or syncope. SKIN:Negative for lesions, rash, and itching Physical examination BP 132/82 Pulse 74 Ht 182.9 cm (6') Wt 86.2 kg (190 lb) SpO2 100% BMI 25.77 kg/m GENERAL: Well nourished, well hydrated, in no distress and oriented x 3 COMMUNICATION: Hearing: normal; VOICE: normal EYES: no thyroid eye signs and normal conjunctiva NECK: no visible nodules or goiter, no bruit, no tenderness and no adenopathies THYROID: smooth, non-tender, 15 gram, firm and No palpable nodules Heart RRR Lungs clear to auscultation Abdomen bowel sounds normoactive, no bruits, soft, non-tender, non-distended, without organomegaly or palpable masses, no tenderness to palpation EXTREMITIES: No clubbing, no edema, no cyanosis and normal nails NEURO: normal strength and no tremor Previous Laboratory Results Component Latest Ref Rng & Units 05/15/2021 12/04/2021 12/31/2021 Protein, Total 6.3 - 8.0 g/dL 8.6 (H) Albumin 3.9 - 4.9 g/dL 4.4 Calcium 8.5 - 10.2 mg/dL 10.0 Bilirubin, Total 0.2 - 1.3 mg/dL 0.2 Alkaline Phosphatase 38 - 113 U/L 82 AST 14 - 40 U/L 23 ALT 10 - 54 U/L 11 Glucose 74 - 99 mg/dL 83 BUN 9 - 24 mg/dL 15 Creatinine 0.73 - 1.22 mg/dL 0.98 Sodium 136 - 144 mmol/L 135 (L) Potassium 3.7 - 5.1 mmol/L 4.1 Chloride 97 - 105 mmol/L 98 CO2 22 - 30 mmol/L 27 Anion Gap 9 - 18 mmol/L 10 eGFR >=60 mL/min/1.73m 108 TSI Qualitative Negative Negative TSI <0.55 IU/L 0.14 TSH Receptor AutoAntibody, Qualitative Negative Positive (A) TSH Receptor AutoAntibody <1.01 IU/L 4.15 (H) Microsomal Antibody <5.6 IU/mL <1.0 Thyroglobulin Ab <14.4 IU/mL 5.5 Free T4 0.9 - 1.7 ng/dL 2.2 (H) 0.8 (L) T3 79 - 165 ng/dL 196 (H) TSH 0.270 - 4.200 mIU/L 19.100 (H) 4.130 Thyroglobulin Ab Date Value Ref Range Status 05/15/2021 5.5 <14.4 IU/mL Final Imaging: * * *Final Report* * * DATE OF EXAM: May 21 2021 9:33AM [facility] 1048 - US THYROID/PARATHYROID / PROCEDURE REASON: Graves disease * * * * Physician Interpretation * * * * EXAMINATION: THYROID ULTRASOUND CLINICAL HISTORY: Graves disease TECHNIQUE: Sonography and Doppler imaging of the thyroid was performed. Images were obtained and stored in a permanent archive. MQ: UST_1 COMPARISON: None. RESULT: Right Lobe: 4.3 x 1.7 x 1.6 cm; slightly heterogeneous echotexture, expected vascular flow. Left Lobe: 4.5 x 1.8 x 1.5 cm; slightly heterogeneous echotexture, expected vascular flow. Isthmus: 0.4 cm Nodules: No discrete nodules identified. Impression/Recommendations 26 year old male is currently evaluated for: ASSESSMENT/PLAN: 1. Hyperthyroidism - ICD9: 242.90, ICD10: E05.90 (primary diagnosis) 2. Graves disease - ICD9: 242.00, ICD10: E05.00 Currently taking methimazole 5 mg every day I reviewed the risks of anti-thyroid drugs including, but not limited to, agranulocytosis, hepatotoxicity, joint pains and rash. - TSH BLD - T3 BLD - T4 FREE/FREE THYROX 3. Encounter for vitamin deficiency screening - ICD9: V77.99, ICD10: Z13.21 - VITAMIN D 25 HYDROXY Nichol Sewell MD documented in this encounter [facility] 12-31-2021 Nurse Note HEARING EXAM: Frequency 500Hz Right20 dB Left 25dB 1000Hz: Right15 dB Left 15dB 2000Hz Right15 dB Left 15dB VISUAL ACUITY: Today's exam: Vision Correction? 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 ACTIVE PROBLEM LIST Gerd Without Esophagitis Current medication: Omeprazole 20 mg AC completed only initial rx Current symptoms: still a little reflux but not as bad on medication. Last Mg level if on PPI chronically: none. Heartburn is controlled: about once a month. Dysphagia: No. Bloody or black stools: No. Bowel changes: No. Last EGD and/or colonoscopy: none. Chronic Elzbieta-Reddy Virus (Ebv) Infection Syndrome Doing well, no fatigue Hyperthyroidism Current medications: Tapazole 5 mg once a day Last thyroid labs: Component Latest Ref Rng & Units 05/08/2021 05/15/2021 12/04/2021 TSI Qualitative Negative Negative TSI <0.55 IU/L 0.14 TSH Receptor AutoAntibody, Qualitative Negative Positive (A) TSH Receptor AutoAntibody <1.01 IU/L 4.15 (H) TSH 0.270 - 4.200 mIU/L 0.169 (L) 19.100 (H) WSR 0 - 15 mm/hr 58 (H) 43 (H) CRP <0.9 mg/dL 0.8 <0.3 Microsomal Antibody <5.6 IU/mL <1.0 Thyroglobulin Ab <14.4 IU/mL 5.5 Free T4 0.9 - 1.7 ng/dL 2.2 (H) 0.8 (L) T3 79 - 165 ng/dL 196 (H) HISTORIES No family history on file. PAST MEDICAL HISTORY Diagnosis Date NEGATIVE MEDICAL HISTORY PAST SURGICAL HISTORY Procedure Laterality Date NONE Social History Tobacco Use Smoking status: Former Smoker Quit date: 05/08/2019 Years since quittin.6 Smokeless tobacco: Never Used Substance Use Topics Alcohol use: Not on file Drug use: Not on file ACTIVE PROBLEM LIST Gerd Without Esophagitis Chronic Elzbieta-Reddy Virus (Ebv) Infection Syndrome Hyperthyroidism Current Outpatient Medications Medication Sig Dispense Refill methIMAzole (TAPAZOLE) 5 mg tablet Take 1 tablet by mouth once daily. 30 tablet 5 ibuprofen (ADVIL) 200 mg tablet Take 200 mg by mouth every 6 hours as needed. omeprazole (PRILOSEC) 20 mg capsule Take 1 capsule by mouth daily before breakfast. 1/2 hr before meal. (Patient not taking: Reported on 12/04/2021 ) 30 capsule 2 No current facility-administered medications for this visit. There are no preventive care reminders to display for this patient. REVIEW OF SYMPTOMS: - General: denies fatigue, unusual weight loss or gain, fevers, chills. Energy Level: pretty good. Exercise walking with his . If yes, what type: walking. How often/long: at least once a week. Sleep: hours: good, 10-6 Diet: nothing special Any routine health measures: no. Tobacco use: none. Caffeine use: 1-2 energy drinks a day. ETOH use: sparingly. Marijuana use: none. Illicit drug use: none. - Eyes: denies change in vision, glaucoma, cataracts. Contacts. Last eye exam: last week. EENT: denies recurrent sinus infection, unusual nasal drainage, hoarsemess, sore throat, or recurrent sore in mouth or tongue. - Cardiovascular: denies chest pain , SOB, palpitation, irregular or racing heart beats, orthopnea, leg swelling, history of rheumatic fever or prior heart conditions - Respiratory: denies unusual cough, SOB, wheezing, history of recurrent bronchitis, pneumonia or tuberculosis. Denies day time drowsiness. deniesSnoring. No sleep apne. - GI: denies difficulty swallowing, nausea, vomiting, change in appetite. No change in bowel habits. Denies constipation, diarrhea, rectal bleeding or hemorrhoids, incontinence. No history of GERD, PUD, jaundice/hepatitis, GB disease, diverticulosis, colorectal cancer, hernias. - Kidney/Bladder: Denies frequency, burning. Nocturia none, incontinence none. No history of kidney stones, recurrent UTI or kidney infection. - Skin: denies unusual rashes. No history of skin cancer, bleeding/changing moles, or unusual skin lesions. - Neurologic: Denies recurrent JARRETT, change in vision, hearing or smell, tremors, unusual weakness, loss of sensation, or difficulty with balance or gait. No history of epilepsy/convulsions, migraine, head/spinal injuries, or stroke/TIA. - Psychiatric: denies unusual worry, moodiness, depression, suicidal ideation or unusual disturbance in relationships. No history of psychiatric illness. - Endocrine: grave's disease controlled: sweats more at night after methimazole started. denies unusual thirst, hunger, excessive urination, change in skin or hair texture, emotional lability. No history of thryoid, pituitary or hormonal problems. Hematologic: denies unusual bleeding, bruising, or history of anemia or blood transfusion. Denies hx blood clots. - Infections: denies risk factors for HIV, hepatitis or history of unusual infection. Immunizations are up to date. - Musculoskeletal: chronic neck pain since middle school. No radiating pain,numbness, or tingling. denies unusual stiffness, muscles aches, joint pain, or swelling. Denies recurrent sprain or disruption of joints, debilitating arthritis, gout, or other musculoskeletal disease. No hx back injury, spinal stenosis, radiculopathy. - EXAM: BP 122/68 Pulse 74 Resp 16 Ht 182 cm (5' 11.65 ) Wt 87.1 kg (192 lb) SpO2 98% BMI 26.29 kg/m General appearance: Pleasant well appearing well appearing adult male, in no acute distress. No barriers to learning. Normal affect and cognition. Alert and oriented in all spheres. Respirations: regular, unlabored Color: pink to lips and nailbeds Skin: warm, dry, no unusual rashes or lesions Head: Normocephalic Eyes: sclerae and conjunctivae without injection or exudate, PERRLA, EOMI, corneal light reflex symmetric bilaterally. Peripheral vision to 90degrees. Ears: TM's and ear canals are clear bilaterally with normal landmarks, no swelling or deformity external ear Nose/Sinuses: Nose patent. No turbinate swelling. No active exudate. Maxillary and frontal sinuses nontender to percussion. Oropharynx: Lips, mucosa, and tongue free from lesions. Teeth are in very poor repair. Gums with significant gingivitis/ inflammation. Oropharynx no exudate or injection. No tonsillar hypertrophy. Mallampati 0/4. Neck: Neck supple, no cervical lymphadenopathy; thyroid without mass or tenderness. Carotids: right 2/4 without bruit, left 2/4 with 0 bruit Chest: normally shaped, equal expansion with breaths.. Lungs: Lungs clear to auscultation and percussion. No crackles or wheezes. Heart: RRR without murmur, gallop, or rubs. S1 and S2 normal. Abd soft, nontender, normoactive bowel sounds throughout, no mass, no organomegaly. Penis circumcised. Testicles descended without nodules. No hernias. Prostate: deferred back FROM, no abnormal curvature. Able to touch toes. Extremities well formed, FROM and strength, no clubbing cyanosis or edema. Neuro grossly intact. Normal gait and balance. Able to squat without difficulty. DTR's 2+/4 symmetric upper and lower bilaterally. Romberg is negative. Hearing normal persudiometry ASSESSMENT/PLAN: 1. 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 Graves disease - ICD9: 242.00, ICD10: E05.00 Seeing Endo this month. Complete outstanding labs. 3. Weight loss - ICD9: 783.21, ICD10: R63.4 Resolved 4. GERD without esophagitis - ICD9: 530.81, ICD10: K21.9 Currently stable off medication, discussed use of omeprazole as needed 5. Periodontal disease - ICD9: 523.9, ICD10: K05.6 Strongly urged patient to get teeth pulled due to relative risk from bacteremia and heart disease. Felecia Dyer PA-C documented in this encounter [facility] 12-10-2021 Miscellaneous Notes Scheduled 01/07/2022.Leona Anand Pss Pt made aware. Please help pt set up appt Change to tapezole once a day. Check tsh in six to eight weeks. Set up referral for endo Pt does not see Endo. Is willing. Please send in rx. Will recheck labs in one week. Pt noted that he has been having some back pain and wonders if this is related to sed rate. Acacia Gregg Ma 1. Thyroid now looks underactive. Is he seeing an endo? If not, probably needs to and we can adjust meds until they see him. 2. Sed rate is improving but still up. Lets repeat some other labs to see where they are and rule out other issues causing the sed rate to be up. Recheck in a week. documented in this encounter [facility] 12-04-2021 History of Presen t illness Narrative 26 year old male with c/o here for follow up Feeling good- good energy Switched jobs, had to wait for insurance to kick in. Graves disease (primary encounter diagnosis) Weight has gone up. + mild cold intolerance Bowels daily except when forgets to eat when busy Energy good, at baseline Mood still a little snappy but mostly better. 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 No hair or skin changes. + joint pain, varies knees, shoulders, elbows. 05/21/21 US : WNL Component Latest Ref Rng & Units 05/08/2021 05/15/2021 TSI Qualitative Negative Negative TSI <0.55 IU/L 0.14 TSH Receptor AutoAntibody, Qualitative Negative Positive (A) TSH Receptor AutoAntibody <1.01 IU/L 4.15 (H) TSH 0.270 - 4.200 uU/mL 0.169 (L) Microsomal Antibody <5.6 IU/mL <1.0 Thyroglobulin Ab <14.4 IU/mL 5.5 Free T4 0.9 - 1.7 ng/dL 2.2 (H) T3 79 - 165 ng/dL 196 (H) Elzbieta reddy infection Lymphadenopathy, abdominal 04/23/21 EBV titers + reactivated mono, - CMV, - LFTs, CRP 4.5, elevated, ESR 100, WBC, mild anemia Weight loss Vitals 04/02/2021 04/23/2021 05/08/2021 12/04/2021 WEIGHT in POUNDS 190 lb 185 lb 177 lb 197 lb WEIGHT in KILOGRAMS 86.183 kg 83.915 kg 80.287 kg 89.359 kg Gerd without esophagitis A few flare ups, nothing terrible HISTORIES No family history on file. PAST MEDICAL HISTORY Diagnosis Date NEGATIVE MEDICAL HISTORY PAST SURGICAL HISTORY Procedure Laterality Date NONE Social History Tobacco Use Smoking status: Former Smoker Quit date: 05/08/2019 Years since quittin.5 Smokeless tobacco: Never Used Substance Use Topics Alcohol use: Not on file Drug use: Not on file ACTIVE PROBLEM LIST Gerd Without Esophagitis Current Outpatient Medications Medication Sig Dispense Refill methIMAzole (TAPAZOLE) 5 mg tablet Take 1 tablet by mouth twice daily. 60 tablet 5 omeprazole (PRILOSEC) 20 mg capsule Take 1 capsule by mouth daily before breakfast. 1/2 hr before meal. 30 capsule 2 No current facility-administered medications for this visit. HEPATITIS C SCREENING Never done HIV SCREENING Never done ONE PNEUMOVAX PRIOR TO AGE 65 Never done DTAP,TDAP,TD(7 - Td or Tdap) due on 08/20/2020 EXAM: BP 128/82 Pulse 76 Resp 18 Wt 89.4 kg (197 lb) SpO2 97% BMI 25.99 kg/m Pleasant well appearing young man in no acute distress. Alert and oriented all spheres. Normal affect and cognition. Speech normal. No deficits to learning or comprehension. Hair is lush, skin smooth Skin warm, dry, pink to lips and nailbeds. Normal turgor. Respirations regular and unlabored. HEENT: NCAT. No scleral icterus or conjunctival injection. TM's clear. Nose and oropharynx free from injection or lesion. Oral membranes moist and pink. No cervical lymph nodes. Thyroid non-tender, generous size, no clear nodules. No masses, or enlargement. Carotids pulses 2+/4+ without bruits. Chest is normal shape. Lungs are clear to all polo with good air exchange through out. HRRR without murmur or gallop. No lifts, heaves, or rubs. Extrem: no clubbing or cyanosis. Edema: none. Extremities are warm and pink with prompt capillary refill. ASSESSMENT/PLAN: 1. Graves disease - ICD9: 242.00, ICD10: E05.00 (primary diagnosis) Recheck labs Discussed for closer follow up - TSH BLD - T4 FREE/FREE THYROX 2. Elzbieta Reddy infection - ICD9: 075, ICD10: B27.90 resolved 3. Weight loss - ICD9: 783.21, ICD10: R63.4 - TSH BLD - T4 FREE/FREE THYROX - SED RATE WESTERGREN - C-REACTIVE PROTEIN (CRP) 4. GERD without esophagitis - ICD9: 530.81, ICD10: K21.9 Doing well 5. Lymphadenopathy, abdominal - ICD9: 785.6, ICD10: R59.0 Resolved 6. 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 Health examination of defined subpopulation Graves disease Toxic diffuse goiter without mention of thyrotoxic crisis or storm Weight loss Loss of weight GERD without esophagitis Esophageal reflux Periodontal disease Unspecified gingival and periodontal disease documented in this encounter [facility] note* Diagnosis Hyperthyroidism- Primary Thyrotoxicosis without mention of goiter or other cause, without mention of thyrotoxic crisis or storm Graves disease Toxic diffuse goiter without mention of thyrotoxic crisis or storm Encounter for vitamin deficiency screening Screening for other and unspecified endocrine, nutritional, metabolic, and immunity disorders documented in this encounter [facility] note* Diagnosis Hyperthyroidism- Primary Thyrotoxicosis without mention of goiter or other cause, without mention of thyrotoxic crisis or storm Graves disease Toxic diffuse goiter without mention of thyrotoxic crisis or storm [facility] Diagnosis Hyperthyroidism- Primary Thyrotoxicosis without mention of goiter or other cause, without mention of thyrotoxic crisis or storm documented in this encounter [facility] note* Diagnosis 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 Health examination of defined subpopulation GERD without esophagitis Esophageal reflux Elzbieta Reddy infection Infectious mononucleosis Hyperthyroidism Thyrotoxicosis without mention of goiter or other cause, without mention of thyrotoxic crisis or storm Gingivitis Chronic gingivitis, plaque induced documented in this encounter [facility] Summary Purpose Family History No Family History Records FoundNo Family History Records FoundNo Family History Records FoundNo Family History Records Found Advance Directives No Advanced Directives Records FoundNo Advanced Directives Records FoundNo Advanced Directives Records FoundNo Advanced Directives Records Found Reason for Referral Specialty Diagnoses / Procedures Referred By Chase saavedra Referred To Contact Endocrinology Diagnoses Graves disease Procedures CONSULT TO ENDOCRINOLOGY OFFICE/OUTPATIENT [facility] 60-74 MINUTES Suzan Parr MD [address] [place] [address] Referral ID Status Reason Start Date Expiration Date Visits Requested Visits Authorized [id number] Authorized PCP Requested Referral 12/08/2021 12/08/2022 1 1 Additional Source Comments (unrecognized sect ion and content) No Status Records FoundNo Status Records FoundNo Status Records FoundNo Status Records Found INFORMATION SOURCE (unrecogn ized section and content) DATE CREATED AUTHOR AUTHOR'S ORGANIZ ATION 03/22/2020 [facility] DATE CREATED AUTHOR AUTHOR'S ORGANIZ ATION 09/17/2020 [facility] DATE CREATED AUTHOR AUTHOR'S ORGANIZ ATION 03/12/2023 [facility] Source Comments (unrecognize d section and content) In the event this informatio n is protected by the Federal Confidentiality of Alcohol and Drug Abuse Patient Records regulations: The Federal rules restrict any use of the information to criminally investigate or prosecute any alcohol or drug abuse patient.[facility] the event this information is protected by the Federal Confidentiality of Alcohol and Drug Abuse Patient Records regulations: The Federal rules restrict any use of the information to criminally investigate or prosecute any alcohol or drug abuse patient.[facility] the event this information is protected by the Federal Confidentiality of Alcohol and Drug Abuse Patient Records regulations: The Federal rules restrict any use of the information to criminally investigate or prosecute any alcohol or drug abuse patient.[facility] the event this information is protected by the Federal Confidentiality of Alcohol and Drug Abuse Patient Records regulations: The Federal rules restrict any use of the information to criminally investigate or prosecute any alcohol or drug abuse patient.[facility] the event this information is protected by the Federal Confidentiality of Alcohol and Drug Abuse Patient Records regulations: The Federal rules restrict any use of the information to criminally investigate or prosecute any alcohol or drug abuse patient.[facility] the event this information is protected by the Federal Confidentiality of Alcohol and Drug Abuse Patient Records regulations: The Federal rules restrict any use of the information to criminally investigate or prosecute any alcohol or drug abuse patient.[facility] the event this information is protected by the Federal Confidentiality of Alcohol and Drug Abuse Patient Records regulations: The Federal rules restrict any use of the information to criminally investigate or prosecute any alcohol or drug abuse patient.[facility] Reason for Visit (unrecogniz ed section and content) Reason Comments Results Reason Comments Consult Reason Comments Thyroid Disease Care Teams (unrecognized sec tion and content) Data Systems Analyst Relationship Specialty Start Date End Date Felecia Dyer PA-C [address] [place] [address] PCP - General [facility] 05/08/21 Data Systems Analyst Relationship Specialty Start Date End Date Felecia Dyer PA-C [address], [place] [id number] PCP - General [facility] 05/08/21 Data Systems Analyst Relationship Specialty Start Date End Date Felecia Dyer PA-C [address], [place] [id number] PCP - [facility] 05/08/21 Data Systems Analyst Relationship Specialty Start Date End Date Felecia Dyer PA-C [address], [place] [id number] PCP - [facility] 05/08/21 Data Systems Analyst Relationship Specialty Start Date End Date Felecia Dyer PA-C [address], [place] [id number] PCP - [facility] 05/08/21 Data Systems Analyst Relationship Specialty Start Date End Date Felecia Dyer PA-C [address], [place] [id number] PCP - General Family Medicine 05/08/21 FOR RECORDS PERTAINING TO PATIENTS WHO ARE OR HAVE BEEN ENROLLED IN A CHEMICAL DEPENDENCY/SUBSTANCEABUSE PROGRAM, SOME INFORMATION MAY BE OMITTED. This clinical summary was aggregated from multiple sources. Caution should be exercised in using it in the provision of clinical care. This summary normalizes information from multiple sources, and as a consequence, information in this document may materially change the coding, format and clinical context of patient data. In addition, data may be omitted in some cases. CLINICAL DECISIONS SHOULD BE BASED ON THE PRIMARY CLINICAL RECORDS. [facility]. provides no warranty or guarantee of the accuracy or completeness of information in this document.
== END | disposition home or self-care (01) ==
LOC: LABSPEC 16:23
PROVIDERS: Referring Provider Surgery; Visit Provider Surgery
DX: Z20.2 Contact with and (suspected) exposure to infections with a predominantly sexual mode of transmission (principal)
CPT/HCPCS: 88302

== ENCOUNTER → 2023-11-08 | Outpatient (CLI) | payer OTHER, SELFPAY ==
--- NOTE | 2023-11-08 | CYSPIN_PTH ---
PATHOLOGY RESULTS PATIENT: JOSH MANLEY LOC: [facility] U#:[id number] AGE/SX: 28/M ROOM: RE11/08/[address]: Dr. Darnell Francis MD : 1995 BED: DIS: 11/08/2023 SPEC #: [id number] RECD: 11/09/23 08:03 STATUS: SANTOS JUSTYNA #: [id number] BRIANA: 11/08/23 00:[address]: Darnell Francis DEPT: CYTOLOGY RECD BY: Kandy Jain ENTERED: 11/09/23 08:03 SP TYPE: CYSPIN FL OT DR: No Primary Care Phys Tissues: Cytologic material, NOS Procedures: Pap Stain (control) Special Stain Group II Cytospin Fluid HEADER OPERATION: Post vasectomy PRE-OP DIAGNOSIS: Vasectomy status TISSUE SUBMITTED: Seminal fluid for cytology DIAGNOSIS CYTOLOGY Seminal fluid for cytology (cytospin): No spermatozoa identified. SJ/mr 11/09/23 CYTOLOGY STUDY Slides are reviewed. CYTOLOGY GROSS Received is 5 ml of clear-yellowish fluid labeled with the patient's name and and designated per the requisition as Seminal fluid. Submitted for cytology preparation. mr/11/09/23 TC:5 CPT: 89827
[2023-11-08 18:02] LABS: Cytology, Semen SEE PATHOLOGY REPORT
== END | disposition home or self-care (01) ==
LOC: LABSPEC 17:55
PROVIDERS: Referring Provider Surgery; Visit Provider Surgery
DX: Z98.52 Vasectomy status (principal)
CPT/HCPCS: 88108; 88313